=== PATIENT | male | born 1990 | race African-American/Black ===

== ENCOUNTER 2020-02-18 11:53 | Emergency (ER) | payer OTHER ==
[~2020-02-18] VITALS: Ht 185.4 cm; Wt 131.7 kg
[2020-02-18 11:56] VITALS: BP 134/66
[2020-02-18] MEDS ORDERED: PENI500T PO (12:36)
== END 2020-02-18 13:03 | disposition home or self-care (01) ==
LOC: M ED 11:53
DX: J02.0 Streptococcal pharyngitis (principal)

== ENCOUNTER 2021-11-12 11:36 | Inpatient (IN) | payer OTHER ==
[~2021-11-12] VITALS: Ht 182.9 cm; Wt 120.5 kg
[~2021-11-12 11:36] MED LIST: PENI500T PO
[2021-11-12 11:56] LABS: HEMATOCRIT 43.4 % (42.0-52.0); HEMOGLOBIN 14.1 g/dl (13.5-17.5); MEAN CORPUSCULAR HEMOGLOBIN 25.4 pg (27.0-33.0); MEAN CORPUSCULAR HGB CONC 32.5 g/dl (32.0-36.5); MEAN CORPUSCULAR VOLUME 78.1 fl (80.0-96.0); PLATELET COUNT, AUTOMATED 282 10^3/uL (150-450); RED BLOOD COUNT 5.56 10^6/uL (4.30-6.10); WHITE BLOOD COUNT 8.2 10^3/uL (4.0-10.0)
[2021-11-12 12:32] LABS: RSV AMPLIFICATION NEGATIVE (NEGATIVE)
[2021-11-12 12:51] LABS: AMPHETAMINES LEVEL URINE NEGATIVE (NEGATIVE); BARBITURATES URINE NEGATIVE (NEGATIVE); BENZODIAZEPINES URINE NEGATIVE (NEGATIVE); CANNABINOIDS URINE NEGATIVE (NEGATIVE); COCAINE METABOLITE URINE NEGATIVE (NEGATIVE); METHADONE URINE NEGATIVE (NEGATIVE); OPIATES URINE NEGATIVE (NEGATIVE); PHENCYCLIDINE URINE NEGATIVE (NEGATIVE)
[2021-11-12 12:57] LABS: ACETAMINOPHEN LEVEL < 2.0 UG/ML (10.0-30.0); ALBUMIN 3.9 GM/DL (3.2-5.2); ALT/SGPT 29 U/L (12-78); BILIRUBIN,DIRECT 0.3 MG/DL (0.0-0.2); BILIRUBIN,TOTAL 1.5 MG/DL (0.2-1.0); BLOOD UREA NITROGEN 10 MG/DL (7-18); CALCIUM LEVEL 9.5 MG/DL (8.5-10.1); CARBON DIOXIDE LEVEL 30 MEQ/L (21-32); CHLORIDE LEVEL 104 MEQ/L (98-107); CREATININE FOR GFR 1.13 MG/DL (0.70-1.30); ETHYL ALCOHOL (ETHANOL) < 0.003 % (0.000-0.010); GLOMERULAR FILTRATION RATE > 60.0 (>60); GLUCOSE, FASTING 93 MG/DL (70-100); POTASSIUM SERUM 4.4 MEQ/L (3.5-5.1); SALICYLATE LEVEL < 1.7 MG/DL (5.0-30.0); SODIUM LEVEL 136 MEQ/L (136-145); THYROID STIMULATING HORMONE 0.807 uIU/ML (0.358-3.740); TOTAL PROTEIN 7.3 GM/DL (6.4-8.2)
[2021-11-12] MEDS ORDERED: SERT50TA29 PO (16:29)
[2021-11-12] MEDS ORDERED: HOME MED LIST COMPLETE! XX SCH (16:30)
[2021-11-12] MEDS ORDERED: ACETAMINOPHEN TAB 650MG DOSE (2X325MG) PO PRN (17:15)
[2021-11-12] MEDS ORDERED: MOM 30ML SUSPENSION UDC PO PRN (17:15)
[2021-11-12 17:48] VITALS: BP 127/81
[2021-11-12] MEDS: SERTRALINE HCL 50 MG TAB PO SCH (18:49)
[2021-11-12] MEDS: NICOTINE 21MG/24HR 1 EA TRANSDERMAL TD SCH (18:55)
[2021-11-13 06:46] VITALS: BP 154/62
[2021-11-13] MEDS: SERTRALINE HCL 50 MG TAB PO SCH (09:34)
[2021-11-13] MEDS: NICOTINE 21MG/24HR 1 EA TRANSDERMAL TD SCH (09:35)
[2021-11-13] MEDS: OLANZapine ORAL DISINTEGRATING TAB 5MG PO PRN (13:36)
[2021-11-13 19:20] VITALS: BP 137/69
[2021-11-13] MEDS: PRAZOSIN 1 MG CAP PO SCH (20:03)
[2021-11-14 06:34] VITALS: BP 124/70
[2021-11-14] MEDS: VENLAFAXINE **XR** 37.5 MG CAPSULE PO SCH (08:04)
[2021-11-14] MEDS: NICOTINE 21MG/24HR 1 EA TRANSDERMAL TD SCH (08:05)
[2021-11-14] MEDS: hydrOXYzine 50 MG TAB PO SCH ×2 (14:02→18:26)
[2021-11-14] MEDS: busPIRone 5 MG TAB PO SCH ×2 (16:52→20:16)
[2021-11-14] MEDS: PRAZOSIN 1 MG CAP PO SCH (20:16)
[2021-11-14] MEDS: traZODone 50 MG TAB PO PRN (20:17)
[2021-11-15] MEDS: hydrOXYzine 50 MG TAB PO SCH ×4 (00:42→16:59)
[2021-11-15 06:34] VITALS: BP 134/79
[2021-11-15] MEDS: VENLAFAXINE **XR** 37.5 MG CAPSULE PO SCH (08:59)
[2021-11-15] MEDS: busPIRone 5 MG TAB PO SCH ×3 (09:00→21:20)
[2021-11-15] MEDS: NICOTINE 21MG/24HR 1 EA TRANSDERMAL TD SCH (09:00)
[2021-11-15 11:31] VITALS: BP 127/59
[2021-11-15 17:47] VITALS: BP 123/75
[2021-11-15] MEDS: traZODone 50 MG TAB PO PRN (21:20)
[2021-11-15] MEDS: PRAZOSIN 1 MG CAP PO SCH (21:20)
[2021-11-16] MEDS: hydrOXYzine 50 MG TAB PO SCH ×5 (00:08→23:36)
[2021-11-16 06:52] VITALS: BP 135/66
[2021-11-16] MEDS: VENLAFAXINE **XR** 37.5 MG CAPSULE PO SCH (08:12)
[2021-11-16] MEDS: busPIRone 5 MG TAB PO SCH ×3 (08:12→20:18)
[2021-11-16] MEDS: OLANZapine ORAL DISINTEGRATING TAB 5MG PO PRN (08:12)
[2021-11-16] MEDS: NICOTINE 21MG/24HR 1 EA TRANSDERMAL TD SCH (08:14)
[2021-11-16 13:23] VITALS: BP 138/80
[2021-11-16] MEDS: PRAZOSIN 1 MG CAP PO SCH (20:18)
[2021-11-16] MEDS: traZODone 50 MG TAB PO PRN (20:18)
[2021-11-17] MEDS: MAALOX 30 ML SUSP *UDC PO PRN ×2 (01:02→15:14)
[2021-11-17] MEDS: hydrOXYzine 50 MG TAB PO SCH ×3 (05:18→17:58)
[2021-11-17 06:40] VITALS: BP 126/64
[2021-11-17] MEDS: NICOTINE 21MG/24HR 1 EA TRANSDERMAL TD SCH (09:00)
[2021-11-17] MEDS: busPIRone 5 MG TAB PO SCH ×3 (09:59→20:18)
[2021-11-17] MEDS: VENLAFAXINE **XR** 37.5 MG CAPSULE PO SCH (09:59)
[2021-11-17 18:36] VITALS: BP 148/88
[2021-11-17] MEDS: PRAZOSIN 1 MG CAP PO SCH (20:18)
[2021-11-18] MEDS: hydrOXYzine 50 MG TAB PO SCH ×5 (01:00→23:39)
[2021-11-18 07:15] VITALS: BP 140/89
[2021-11-18] MEDS: VENLAFAXINE **XR** 37.5 MG CAPSULE PO SCH (08:31)
[2021-11-18] MEDS: NICOTINE 21MG/24HR 1 EA TRANSDERMAL TD SCH (08:31)
[2021-11-18] MEDS: busPIRone 5 MG TAB PO SCH ×3 (08:31→20:55)
[2021-11-18 18:25] VITALS: BP 131/78
[2021-11-18 20:55] VITALS: BP 147/88
[2021-11-18] MEDS: PRAZOSIN 1 MG CAP PO SCH (20:55)
[2021-11-19] MEDS: hydrOXYzine 50 MG TAB PO SCH ×2 (05:50→12:26)
[2021-11-19 06:22] VITALS: BP 134/88
[2021-11-19] MEDS: VENLAFAXINE **XR** 37.5 MG CAPSULE PO SCH (08:12)
[2021-11-19] MEDS: NICOTINE 21MG/24HR 1 EA TRANSDERMAL TD SCH (08:12)
[2021-11-19] MEDS: busPIRone 5 MG TAB PO SCH (08:12)
[2021-11-19] MEDS ORDERED: MINI1CAP PO (09:13)
[2021-11-19] MEDS ORDERED: BUSP5TA PO (09:13)
[2021-11-19] MEDS ORDERED: VENL37.598 PO (09:13)
[2021-11-19] MEDS ORDERED: TRAZ-252 PO (09:13)
[2021-11-19] MEDS ORDERED: HYDR50TA70 PO (09:13)
[2021-11-19] MEDS ORDERED: NICO21PAT TD (09:13)
== END 2021-11-19 13:09 | disposition home or self-care (01) | DRG 885 ==
LOC: EDBD 11:36 → M ED 11:36 → M ED INP 17:11 → M PSY 17:56
PROVIDERS: ADMIT Student in an Organized Health Care Education/Training Program; ATTEND Student in an Organized Health Care Education/Training Program
DX: F33.1 Major depressive disorder, recurrent, moderate (principal); R45.851 Suicidal ideations; F43.10 Post-traumatic stress disorder, unspecified; F17.290 Nicotine dependence, other tobacco product, uncomplicated; Z63.5 Disruption of family by separation and divorce; Z65.3 Problems related to other legal circumstances; Z56.4 Discord with boss and workmates; Z20.822 Contact with and (suspected) exposure to COVID-19; Z79.899 Other long term (current) drug therapy

== ENCOUNTER → 2022-04-04 | Outpatient (REF) | payer OTHER ==
[~2022-04-04] MED LIST changes: +BUSP5TA PO; +HYDR50TA70 PO; +MINI1CAP PO; +NICO21PAT TD; +SERT50TA29 PO; +TRAZ-252 PO; +VENL37.598 PO
[2022-04-04 18:37] LABS: BACTERIA, URINE NONE SEEN; HYALINE CAST, URINE NONE SEEN /lpf (0-1); MUCUS, URINE LARGE AMOUNT (NEGATIVE); SQUAMOUS EPITHELIAL CELL URINE SMALL AMOUNT /hpf (SMALL AMT); WBC, URINE 0-1 /hpf (0-3)
== END ==
LOC: M LAB REF 16:46
PROVIDERS: ATTEND Internal Medicine Nephrology
DX: R31.9 Hematuria, unspecified (principal); M62.82 Rhabdomyolysis

== ENCOUNTER → 2022-05-08 | Outpatient (REF) | payer OTHER ==
[2022-05-08 18:23] LABS: BACTERIA, URINE MOD AMOUNT; MUCUS, URINE LARGE AMOUNT (NEGATIVE); SQUAMOUS EPITHELIAL CELL URINE SMALL AMOUNT /hpf (SMALL AMT)
== END ==
LOC: M LAB REF 16:38
PROVIDERS: ATTEND Internal Medicine Nephrology
DX: R31.9 Hematuria, unspecified (principal); M62.82 Rhabdomyolysis